=== PATIENT | female | born 1990 ===

== ENCOUNTER 2017-12-09 08:40 | Day surgery (SDC) | payer MEDICAID ==
[2017-12-02 08:58] VITALS: BMI 27.7
[~2017-12-09 08:40] MED LIST: Acetaminophen-Codeine 300/30 mg Tab PO PRN
[2017-12-09] MEDS ORDERED: Dextrose 5%/0.45% NS 1,000 ML IV SCH (08:45)
[2017-12-09] MEDS ORDERED: Midazolam 2 MG/2 ML VIAL ONE (10:33)
[2017-12-09] MEDS ORDERED: Propofol 10 mg/ml Inj (20 ML) ONE (10:33)
[2017-12-09] MEDS ORDERED: Rocuronium 10 mg/ml (5 ml) ONE (10:34)
[2017-12-09] MEDS ORDERED: ceFAZolin IV 1 gm in Dextrose 1 GM/50 ML BAG IVPB ONE (10:35)
[2017-12-09] MEDS ORDERED: EPINEPHrine 1:1000 Nasal Sol(30mL) ONE (10:36)
[2017-12-09] MEDS ORDERED: Lidocaine/Epinephrine 1% 1:100000 10 ML IJ ONE (10:36)
[2017-12-09] MEDS ORDERED: Neostigmine Methylsulfate 3mg/3ml Syringe IV ONE (12:19)
[2017-12-09] MEDS: HYDROmorphone 0.5 mg/0.5 ml ISec IVP PRN ×2 (12:49→13:27)
[2017-12-09] MEDS ORDERED: Lactated Ringer's 1,000 ML IV ONE (14:56)
[2017-12-09 15:15] VITALS: RESP 18
[2017-12-09 16:03] VITALS: BP 133/78; PULSE 78; TEMP 97.8; O2SAT 97
--- NOTE | 2017-12-09 23:21 | OP ---
PROCEDURE DATE: 12/09/2017 PREOPERATIVE DIAGNOSES: Deviated septum, large turbinates, sinusitis. PROCEDURE: Septoplasty, bilateral endoscopic maxillary antrostomy, bilateral endoscopic ethmoidectomy, and bilateral endoscopic inferior turbinate reduction. POSTOPERATIVE DIAGNOSES: Deviated septum, large turbinates, sinusitis. SIGNIFICANT FINDINGS: Deviated septum, large turbinates, sinusitis. DESCRIPTION OF PROCEDURE: The patient was brought into the room, placed in supine position, anesthesia was initiated through an ET tube. Adrenaline-soaked pledgets were inserted into the nasal cavity, remained there for at least 5 minutes and removed. The septum was injected with lidocaine with epinephrine on both sides. A Fran's incision was made on the left and mucoperichondrial flap was raised. A vertical incision was made in the cartilage, leaving a 1.5 cm anterior and superior struts and a mucoperichondrial flap was raised on the other side. Deviated portion of the bone and cartilage were removed using forceps and chisel. A quilting suture was used to suture the two flaps together and closed the Fran incision. A 0-degree scope was then inserted into the nasal cavity, The inferior turbinates were noted to be enlarged and reduced in size, first on the left, then on the right using scissors to confirm inferior to superior, anterior to posterior direction on both sides, Bleeding was controlled using suction cautery. Attention was turned to the left, middle turbinate was injected with lidocaine with epinephrine and medialized. The uncinate process was medialized and removed using forceps. A debrider was used to enter the ethmoid bulla inferomedially, going posteriorly to the basal lamella, then anteriorly and superiorly until the ethmoid bulla was removed. The basal lamella was entered. Posterior ethmoid cells were entered and opened. The skull base was identified and followed anteriorly all the way to the area of the anterior ethmoid air cells. The curved suction hooked up to navigation was used to locate the maxillary antrum, which was noted to be stenosed and opened using forceps. Bleeding was controlled using adrenaline-soaked pledgets and suction cautery. Next, attention was turned to the other side. The middle turbinate was injected with lidocaine with epinephrine on the right and medialized. The uncinate process was medialized using a Tyler elevator and removed using forceps. Debrider was used to enter the ethmoid bulla inferomedially going posteriorly to the basal lamella, then anteriorly and superiorly until the ethmoid bulla was removed. The basal lamella was entered. Posterior ethmoid cells were entered and opened. The skull base was identified and followed anteriorly all the way to the area of the anterior ethmoid air cells. A curved suction hooked up to navigation was used to locate the maxillary antrum, which was noted to be stenosed and opened using forceps. Bleeding was controlled using suction cautery and adrenaline-soaked pledgets. Splints were placed. The patient was taken off anesthesia and taken to recovery room in a stable manner. Emanuel Ko MD
== END 2017-12-09 16:06 | disposition home or self-care (01) ==
LOC: C.SDS 08:40
PROVIDERS: ATTEND Otolaryngology
DX: J34.2 Deviated nasal septum (principal); J34.3 Hypertrophy of nasal turbinates; J32.0 Chronic maxillary sinusitis
CPT/HCPCS: 30130; 30520; 31256; 88304; J0690; J1100; J1170; J2250; J2405; J2704; J2710; J3010; J7120